=== PATIENT | male | born 1995 | race African-American/Black ===

== ENCOUNTER 2025-01-09 08:17 | Emergency (ER) | payer SELFPAY ==
--- NOTE | ~2025-01-09 | XR_ITS ---
EXAMINATION: XR knee LT min 4V, 01/09/2025 8:58 PLATE FINISHER HISTORY: PT STATES HE FELL IN A HOLE X TODAY COMPARISON: No comparisons available. Findings: No acute fracture or malalignment. No significant degenerative changes. Soft tissues unremarkable. Impression: No acute fracture or malalignment. Reviewed, dictated and finalized at location P. E FINISHER Impression: No acute fracture or malalignment.
[2025-01-09 08:17] VITALS: BP 131/74; PULSE 72; RESP 16; TEMP 36.4; O2SAT 100
--- NOTE | 2025-01-09 09:32 | ED_ITS ---
HPI - General Adult General Chief complaint: Extremity Injury, Lower Stated complaint: L knee pain History of Present Illness HPI narrative: 29-year-old male present to the emergency department for evaluation for left knee pain. patient states he was walking and stepped into a hole injuring his left knee. Patient denies striking head denies loss conscious. Patient denies any other pain or injury. Patient states he is able to ambulate. Related Data Allergies Allergy/AdvReac Type Severity Reaction Status Date / Time No Known Allergies Allergy Verified 01/09/25 08:23 Review of Systems Review of Systems: All systems reviewed & are unremarkable except as noted in HPI and below Exam Narrative: APPEARANCE: Well appearing, no pain, no distress, well-nourished. HEAD: normocephalic, atraumatic. EYES: PERRLA/EOMI, conjunctivae clear. NOSE: Normal no drainage EARS:TMS clear with good light reflex. THROAT: Pharynx clear, no exudate. NECK: Supple. No adenopathy, no masses. RESPIRATORY: Airway patent, respirations nonlabored. Clear to auscultation bilaterally, no rales, rhonchi, wheezing. CARDIOVASCULAR: Regular rate and rhythm without murmurs rubs or gallops. ABDOMINAL: Soft, nontender, nondistended, normal bowel sounds MUSCULOSKELETAL: Moves all extremities. Strength/ROM intact, No edema, No calf tenderness. NEURO: Alert. Cranial nerves II through XII intact. Good gait. Good coordination SKIN: Warm, dry. Normal Color Course Vital Signs Vital signs: Vital Signs Temperature 97.6 F 01/09/25 08:17 Pulse Rate 72 01/09/25 08:17 Respiratory Rate 16 01/09/25 08:17 Blood Pressure 131/74 01/09/25 08:17 Pulse Oximetry 100 01/09/25 08:17 Oxygen Delivery Room Air 01/09/25 08:17 Temperature 97.6 F 01/09/25 08:17 Pulse Rate 67 01/09/25 09:42 Respiratory Rate 15 01/09/25 09:42 Blood Pressure 121/83 01/09/25 09:42 Pulse Oximetry 100 01/09/25 09:42 Oxygen Delivery Room Air 01/09/25 08:17 Medical Decision Making MDM Narrative Medical decision making narrative: 29-year-old male present to the emergency department for evaluation for left knee pain. Patient had minimal tenderness to palpation and no deformity on exam. X-ray was negative for acute fracture dislocation. Patient is requesting to be discharged and is requesting a ride. Patient will be encouraged to have close follow-up with primary care physician. All questions are addressed. Differential Diagnosis Differential Diagnosis: Knee strain, knee contusion, internal derangement of left knee Vital Signs Vital Signs: Vital Signs Temperature 97.6 F 01/09/25 08:17 Pulse Rate 72 01/09/25 08:17 Respiratory Rate 16 01/09/25 08:17 Blood Pressure 131/74 01/09/25 08:17 Pulse Oximetry 100 01/09/25 08:17 Oxygen Delivery Room Air 01/09/25 08:17 Temperature 97.6 F 01/09/25 08:17 Pulse Rate 67 01/09/25 09:42 Respiratory Rate 15 01/09/25 09:42 Blood Pressure 121/83 01/09/25 09:42 Pulse Oximetry 100 01/09/25 09:42 Oxygen Delivery Room Air 01/09/25 08:17 Imaging Data Radiologist's impression: Impressions Knee X-Ray 01/09/25 09:09 Impression: No acute fracture or malalignment. Discharge Plan Discharge Clinical Impression: Injury of knee, left Patient Disposition: Home Condition: Stable Instructions: Antibiotic Form, Knee Pain (ED) Additional Instructions: Tj wrap for comfort. Tylenol and ibuprofen for pain control. Have close follow-up with your primary care physician. Patient Language: Kenyan Follow-up/Referrals: UNKNOWN,DOCTOR [Primary Care Provider]
[2025-01-09 09:42] VITALS: BP 121/83; PULSE 67; RESP 15; O2SAT 100
--- NOTE | 2025-01-09 09:53 | PC.NURSE ---
Pt approached intake desk after being discharged stating that he did not have a ride home. This RN called care coordination to assist with ride home for pt.
--- NOTE | 2025-01-09 09:59 | PCCCNOTE ---
Called to ER for a pt needing transportation home, denies any family or friends that can transport him home. Pt lives in [facility] and would need a [facility] but ticket which we do not have. Cab voucher given to the RN for [employer] cab at this time. RN to call cab when pt is ready to leave. CR
== END 2025-01-09 10:02 | disposition home or self-care (01) ==
PROVIDERS: Emergency Provider Emergency Medicine
DX: S89.92XA Unspecified injury of left lower leg, initial encounter (principal); W18.42XA Slipping, tripping and stumbling without falling due to stepping into hole or opening, initial encounter
CPT/HCPCS: 73564; 99283